=== PATIENT | female | born 2000 | race Caucasian/White ===

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

== ENCOUNTER 2020-07-01 15:34 | Inpatient (IN) | payer OTHER ==
[2020-07-01] MEDS ORDERED: XYLOCAINE 1% HCL 20 ML MDV IJ PRN (16:28)
[2020-07-01] MEDS ORDERED: Lactated Ringers 1,000 ML IV ONE (16:28)
[2020-07-01] MEDS ORDERED: Ephedrine Sulfate 50 MG/ML IV PRN (16:28)
[2020-07-01] MEDS ORDERED: OB EPIDURAL NAROPIN/SUFENTANIL IN NACL EPIDURAL PRN (16:28)
[2020-07-01] MEDS ORDERED: PITOCIN 30 UNITS/ LR 500 ML 30 UNITS/500 ML IV.SOLN. IV SCH (16:30)
[2020-07-01 16:39] LABS: Amphetamine,Urine NEGATIVE (NEGATIVE); Barbiturate,Urine NEGATIVE (NEGATIVE); Benzodiazepine,Urine NEGATIVE (NEGATIVE); Cocaine,Urine NEGATIVE (NEGATIVE); Methadone,Urine NEGATIVE (NEGATIVE); Opiate,Urine NEGATIVE (NEGATIVE); PCP,Urine NEGATIVE (NEGATIVE); THC,Urine POSITIVE (NEGATIVE)
[2020-07-01 17:42] LABS: BASOPHIL % 0.3 % (0.0-0.4); Basophil (Absolute #) 0.03 (0-0.4); Eosinophil % 0.3 % (0.00-5.0); Eosinophil (Absolute #) 0.03 (0-0.5); Hematocrit 32.7 % (35-47); Lymphocyte (Absolute #) 1.88 (1.0-4.6); Lymphocytes % 16.8 % (24.0-44.0); Mean Cell Volume 91.1 fl (78-100); Mean Corpuscular Hemoglobin 30.6 pg (26-32); Mean Corpuscular Hgb Concent. 33.6 g/dl (32-36); Monocyte (Absolute #) 0.83 (0.0-1.3); Monocytes % 7.4 % (0.0-12.0); Neutrophil % 75.2 % (36.0-66.0); Platelet Count 273 K/mm3 (150-450); Red Blood Count 3.59 M/mm3 (4.1-5.4); Red Cell Distribution Width 12.6 % (11.5-14.0); White Blood Count 11.2 K/mm3 (4.0-10.5)
[2020-07-01] MEDS ORDERED: Zofran 4 MG/2 ML VIAL IV PRN (22:14)
[2020-07-02] MEDS ORDERED: STADOL 2 MG IV PRN (03:38)
[2020-07-02] MEDS: Lactated Ringers 1,000 ML IV SCH ×2 (04:25→08:46)
[2020-07-02] MEDS ORDERED: SOD CITRATE-CITRIC ACID SOLN PO ONE (08:25)
[2020-07-02] MEDS ORDERED: Xylocaine-Mpf 2% 5 Ml Vial ONE (08:26)
[2020-07-02] MEDS ORDERED: Pitocin 10 UNITS/ML ONE ×2 (08:28→10:11)
[2020-07-02] MEDS ORDERED: Pepcid 20 MG VIAL IV SCH (08:30)
[2020-07-02] MEDS ORDERED: Reglan 10 MG/2 ML IV SCH (08:30)
[2020-07-02] MEDS ORDERED: CLINDAMYCIN-D5W 900 MG/50 ML*** 900 MG/50 ML BAG IV SCH (08:30)
[2020-07-02 08:59] LABS: INR 1.09 (0.8-3.0); PROTIME 12.3 SECONDS (9.95-12.35)
[2020-07-02 09:02] LABS: PTT 26.6 SECONDS (25.3-37.0)
[2020-07-02] MEDS ORDERED: Astramorph-Pf 5 MG/10 ML ONE (09:09)
[2020-07-02] MEDS ORDERED: MARCAINE 0.5%-EPI 1:200,000 VL IJ ONE (09:24)
[2020-07-02] MEDS ORDERED: Marcaine 0.5%/Epinephrine 10 ML ONE (09:24)
[2020-07-02] MEDS ORDERED: PHENYLEPHRINE HCL ONE (09:28)
[2020-07-02] MEDS ORDERED: Lactated Ringers 1,000 ML IV ONE ×2 (10:01→10:27)
[2020-07-02] MEDS ORDERED: DEMEROL 50 MG ONE (10:15)
[2020-07-02 10:39] LABS: Appearance CLEAR (CLEAR); Bilirubin NEGATIVE (NEGATIVE); Blood MODERATE Ery/ul (0-5); Glucose NEGATIVE (NEGATIVE); Ketones MODERATE (NEGATIVE); Leukocyte Esterase NEGATIVE (NEGATIVE); Mucus SLIGHT /HPF (NEGATIVE); Nitrite NEGATIVE (NEGATIVE); Protein,Urine Dip 30 (Negative); Specific Gravity 1.016 (1.005-1.025); Urobilinogen 2 mg/dL (0-1)
[2020-07-02 11:47] LABS: Absolute Neutrophil Ct (ANC) 18.63 (1.4-6.9); BASOPHIL % 0.1 % (0.0-0.4); Basophil (Absolute #) 0.02 (0-0.4); Eosinophil (Absolute #) 0.01 (0-0.5); Hematocrit 28.2 % (35-47); Hemoglobin 9.3 gm/dl (12.0-16.0); Lymphocytes % 4.8 % (24.0-44.0); Mean Cell Volume 91.3 fl (78-100); Mean Corpuscular Hemoglobin 30.1 pg (26-32); Mean Platelet Volume 9.9 fl (7.5-11.0); Monocyte (Absolute #) 1.38 (0.0-1.3); Monocytes % 6.6 % (0.0-12.0); Neutrophil % 88.5 % (36.0-66.0); Platelet Count 254 K/mm3 (150-450); Red Blood Count 3.09 M/mm3 (4.1-5.4); Red Cell Distribution Width 12.4 % (11.5-14.0)
[2020-07-02] MEDS ORDERED: NORCO 5/325 MG PO PRN (12:03)
[2020-07-02] MEDS ORDERED: LANSINOH 40 GM TOP PRN (12:03)
[2020-07-02] MEDS ORDERED: DEMEROL 50 MG IV PRN (12:03)
[2020-07-02] MEDS ORDERED: CLARITIN 10 MG PO PRN (12:03)
[2020-07-02] MEDS ORDERED: Mylicon 80MG PO PRN (12:03)
[2020-07-02] MEDS ORDERED: Phenergan 25 MG INJ IM PRN (12:03)
[2020-07-02] MEDS ORDERED: PERCOCET TABLET 5/325MG PO PRN (12:03)
--- NOTE | 2020-07-02 13:33 | OP ---
SURGERY DATE: 07/02/2020 SURGERY TIME: 900 PREOPERATIVE DIAGNOSES: 1. BREECH PRESENTATION. 2. TERM INTRAUTERINE IN ACTIVE LABOR. POSTOPERATIVE DIAGNOSES: 1. BREECH PRESENTATION. 2. TERM INTRAUTERINE IN ACTIVE LABOR. 3. HEMORRHAGE. PROCEDURE: 1. Primary low transverse section. SURGEON: Yovany Yanez M.D. ANESTHESIA: Epidural by Suresh Spence CRNA. ESTIMATED BLOOD LOSS: 1000 ml. URINE: 200 ml of clear, straw-colored urine. SPECIMEN: None. DESCRIPTION OF PROCEDURE: The patient had arrived with spontaneous rupture of membranes and in active labor and then found to have breech presentation after laboring. Therefore was sent for emergency . Risks and benefits were discussed including any potential complications including blood loss, infection, and damage to surrounding tissues. After informed written consent was signed, her previously placed laboring epidural was dosed for surgery and then she was taken to the OR and prepped and draped in the usual sterile fashion. After adequate level of anesthesia was assessed, low transverse skin incision was made by knife and carried down through the subcutaneous fat to the level of the fascia. Several bleeders were cauterized with electrocautery upon entry. The superior free edge of the fascia was then grasped with Jessica clamps after the fascia was nicked in the midline and extended horizontal on both sides. The same was repeated inferiorly with grasping the fascia with the Jessica clamps and underlying rectus muscles were dissected free. The peritoneal cavity was then opened in a horizontal and blunt fashion and extended. Bladder flap was created and reflected over the lower uterine segment. A horizontal uterine incision was made by knife and carried down to the level of the amniotic membranes which were carefully artificially ruptured. There was a mild amount of clear fluid encountered. A female was delivered from the breech presentation with strong cry immediately upon delivery. The oropharynx and nares were bulb suctioned freed. The cord was clamped and cut and she was handed off to the awaiting nursery team. The placenta was then manually extracted and the uterus was exteriorized. The uterine incision was closed with #1 chromic in a running, locked fashion. There was extension of the uterine incision in the right lower uterine segment with significant blood loss. It was eventually controlled place of chromic suture with good closure and good hemostasis, but again more than expected blood loss was encountered. The posterior cul-de-sac was suctioned free of blood and clot and the uterus was returned to the peritoneal cavity. Again, the uterine incision was closely inspected and noted to be adequately closed. There was a small area of bleeding in the inferior mid segment of the uterus which 2-0 Vicryl was placed in a figure-of-8 suture and took care of that area of oozing. Lateral gutters were wiped free of blood and clot. Again, the uterine incision was inspected to ensure continued good hemostasis which was present. The peritoneal cavity appeared good and dry. Therefore, the fascia was then closed with 0 Vicryl in a running fashion. Good closure and good hemostasis were achieved. The subcutaneous fat was irrigated with warm, sterile saline and any areas of bleeding were cauterized with electrocautery. Finally, the skin layer was closed with 4-0, undyed Vicryl in running subcuticular fashion. Steri-Strips and an occlusive dressing were placed over the incision. Anesthesia had started a 2nd line. There was some mild tachycardia in the 120-130 range, but otherwise, the patient was hemodynamically stable throughout the entirety of the procedure. PLAN: Plan is to check a postoperative H/H and I did discuss with her the possibility of need for transfusion following her blood loss and she was in stable condition following the procedure.
[2020-07-02 14:43] LABS: Amphetamine,Urine NEGATIVE (NEGATIVE); Barbiturate,Urine NEGATIVE (NEGATIVE); Benzodiazepine,Urine NEGATIVE (NEGATIVE); Cocaine,Urine NEGATIVE (NEGATIVE); Methadone,Urine NEGATIVE (NEGATIVE); Opiate,Urine NEGATIVE (NEGATIVE); PCP,Urine NEGATIVE (NEGATIVE); THC,Urine POSITIVE (NEGATIVE)
[2020-07-02] MEDS: Dextrose 5%-Lr IV Solution 1000 ML 1,000 ML IV SCH ×2 (15:19→23:30)
[2020-07-02] MEDS: MOTRIN 400 MG PO PRN (20:13)
[2020-07-02] MEDS ORDERED: Nubain 10 MG/ML IV PRN (20:58)
[2020-07-02] MEDS ORDERED: BENADRYL 50 MG/ML IV PRN (21:02)
[2020-07-02] MEDS: Colace 100 MG PO SCH (22:07)
[2020-07-03 05:59] LABS: Absolute Neutrophil Ct (ANC) 7.75 (1.4-6.9); BASOPHIL % 0.2 % (0.0-0.4); Basophil (Absolute #) 0.02 (0-0.4); Eosinophil % 0.6 % (0.00-5.0); Eosinophil (Absolute #) 0.07 (0-0.5); Hematocrit 22.2 % (35-47); Hemoglobin 7.3 gm/dl (12.0-16.0); Lymphocyte (Absolute #) 2.26 (1.0-4.6); Lymphocytes % 19.6 % (24.0-44.0); Mean Cell Volume 92.5 fl (78-100); Mean Corpuscular Hemoglobin 30.4 pg (26-32); Mean Corpuscular Hgb Concent. 32.9 g/dl (32-36); Mean Platelet Volume 9.9 fl (7.5-11.0); Monocyte (Absolute #) 1.43 (0.0-1.3); Monocytes % 12.4 % (0.0-12.0); Neutrophil % 67.2 % (36.0-66.0); Platelet Count 211 K/mm3 (150-450); Red Cell Distribution Width 12.5 % (11.5-14.0); White Blood Count 11.5 K/mm3 (4.0-10.5)
--- NOTE | 2020-07-03 07:48 | PCM.NOTE ---
Date and Time: 07/03/20745 Subjective Assessment: pt feels good, alcides po intake ambulating without dizziness or lightheadedness Objective Exam General Appearance: no apparent distress, alert Respiratory Exam: normal breath sounds, lungs clear, No respiratory distress Cardiovascular Exam: regular rate/rhythm, normal heart sounds Gastrointestinal/Abdomen Exam: soft, other (incision c/d/i), No tenderness, No mass OBJECTIVE DATA Vital Signs: Vital Signs - 24 hr Temp Pulse Resp BP Pulse Ox 07/03/20 02:00 98.3 F 96 H 18 119/57 98 07/02/20 20:00 98.4 F 112 H 16 127/72 100 07/02/20 18:00 99 07/02/20 17:00 97 07/02/20 16:00 98 07/02/20 15:00 99 07/02/20 14:14 98.2 F 113 H 18 132/89 97 07/02/20 14:00 98 07/02/20 13:14 133 H 18 98 07/02/20 13:00 96 07/02/20 12:14 137 H 18 122/74 99 07/02/20 12:00 97 07/02/20 11:59 99.4 F 136 H 18 122/74 97 07/02/20 11:00 100 07/02/20 08:48 98.2 F 95 H 24 122/79 07/02/20 08:30 111 H 20 100 07/02/20 08:15 97.8 F 118 H 20 07/02/20 08:00 24 Pain Assessment - Last Documented Pain Intensity [Posterior] 3 Pain Intensity 2 Pain Scale Used 0-10 Pain Scale Intake and Output: Intake & Output 06/30/20 07/01/20 07/02/20 07/03/20 11:59 11:59 11:59 11:59 Intake Total 2258 2600 Output Total 600 2200 Balance 1658 400 Weight 84.822 kg Lab Results: Lab Results-Last 24 Hours 07/02/20 07/02/20 07/02/20 Range/Units 08:26 08:26 08:36 WBC (4.0-10.5) K/mm3 RBC (4.1-5.4) M/mm3 Hgb (12.0-16.0) gm/dl Hct (35-47) % MCV (78-100) fl MCH (26-32) pg MCHC (32-36) g/dl RDW (11.5-14.0) % Plt Count (150-450) K/mm3 MPV (7.5-11.0) fl Gran % (36.0-66.0) % Eos # (Auto) (0-0.5) Absolute Lymphs (auto) (1.0-4.6) Absolute Monos (auto) (0.0-1.3) Lymphocytes % (24.0-44.0) % Monocytes % (0.0-12.0) % Eosinophils % (0.00-5.0) % Basophils % (0.0-0.4) % Absolute Granulocytes (1.4-6.9) Basophils # (0-0.4) PT 12.3 (9.95-12.35) SECONDS INR 1.09 (0.8-3.0) APTT 26.6 (25.3-37.0) SECONDS Urine Color YELLOW (YELLOW) Urine Appearance CLEAR (CLEAR) Urine pH 7.0 (5-6) Ur Specific [place] 1.016 (1.005-1.025) Urine Protein 30 (Negative) Urine Ketones MODERATE (NEGATIVE) Urine Blood MODERATE (0-5) Justo/ul Urine Nitrite NEGATIVE (NEGATIVE) Urine Bilirubin NEGATIVE (NEGATIVE) Urine Urobilinogen 2 (0-1) mg/dL Ur Leukocyte Esterase NEGATIVE (NEGATIVE) Urine WBC (Auto) 3-5 (0-5) /HPF Urine RBC (Auto) 16-25 (0-2) /HPF U Epithel Cells (Auto) NONE (FEW) /HPF Urine Bacteria (Auto) NONE (NEGATIVE) /HPF Urine Mucus (Auto) SLIGHT (NEGATIVE) /HPF Urine Culture Reflexed NO (NO) Urine Glucose NEGATIVE (NEGATIVE) mg/dL Urine Opiates Level NEGATIVE (NEGATIVE) Ur Methadone NEGATIVE (NEGATIVE) Urine Barbiturates NEGATIVE (NEGATIVE) Ur Phencyclidine (PCP) NEGATIVE (NEGATIVE) Urine Amphetamine NEGATIVE (NEGATIVE) U Benzodiazepine Level NEGATIVE (NEGATIVE) Urine Cocaine NEGATIVE (NEGATIVE) Urine Marijuana (THC) POSITIVE (NEGATIVE) 07/02/20 07/03/20 Range/Units 11:45 05:15 WBC 21.0 H 11.5 H (4.0-10.5) K/mm3 RBC 3.09 L 2.40 L (4.1-5.4) M/mm3 Hgb 9.3 L 7.3 L D (12.0-16.0) gm/dl Hct 28.2 L 22.2 L (35-47) % MCV 91.3 92.5 (78-100) fl MCH 30.1 30.4 (26-32) pg MCHC 33.0 32.9 (32-36) g/dl RDW 12.4 12.5 (11.5-14.0) % Plt Count 254 211 (150-450) K/mm3 MPV 9.9 9.9 (7.5-11.0) fl Gran % 88.5 H 67.2 H (36.0-66.0) % Eos # (Auto) 0.01 0.07 (0-0.5) Absolute Lymphs (auto) 1.00 2.26 (1.0-4.6) Absolute Monos (auto) 1.38 H 1.43 H (0.0-1.3) Lymphocytes % 4.8 L 19.6 L (24.0-44.0) % Monocytes % 6.6 12.4 H (0.0-12.0) % Eosinophils % 0.0 0.6 (0.00-5.0) % Basophils % 0.1 0.2 (0.0-0.4) % Absolute Granulocytes 18.63 H 7.75 H (1.4-6.9) Basophils # 0.02 0.02 (0-0.4) PT (9.95-12.35) SECONDS INR (0.8-3.0) APTT (25.3-37.0) SECONDS Urine Color (YELLOW) Urine Appearance (CLEAR) Urine pH (5-6) Ur Specific [place] (1.005-1.025) Urine Protein (Negative) Urine Ketones (NEGATIVE) Urine Blood (0-5) Justo/ul Urine Nitrite (NEGATIVE) Urine Bilirubin (NEGATIVE) Urine Urobilinogen (0-1) mg/dL Ur Leukocyte Esterase (NEGATIVE) Urine WBC (Auto) (0-5) /HPF Urine RBC (Auto) (0-2) /HPF U Epithel Cells (Auto) (FEW) /HPF Urine Bacteria (Auto) (NEGATIVE) /HPF Urine Mucus (Auto) (NEGATIVE) /HPF Urine Culture Reflexed (NO) Urine Glucose (NEGATIVE) mg/dL Urine Opiates Level (NEGATIVE) Ur Methadone (NEGATIVE) Urine Barbiturates (NEGATIVE) Ur Phencyclidine (PCP) (NEGATIVE) Urine Amphetamine (NEGATIVE) U Benzodiazepine Level (NEGATIVE) Urine Cocaine (NEGATIVE) Urine Marijuana (THC) (NEGATIVE) Multi-Disciplinary Progress Notes: Multi-Disciplinary Progress Notes 07/02/20 09:46 Respiratory Note by Gretchen Alejo 0900 STANDBY FOR PER PROTOCOL SX X1 FOR SCANT AMT CLEAR NO COMPLICATIONS Initialized on 07/02/20 09:46 - END OF NOTE Assessment/Plan (1) delivery delivered Current Visit: Yes Status: Acute Assessment & Plan: routine care Code(s): O82 - ENCOUNTER FOR DELIVERY WITHOUT INDICATION (2) Anemia due to blood loss, acute Current Visit: Yes Status: Acute Assessment & Plan: po iron, repeat cbc tomorrow Code(s): D62 - ACUTE POSTHEMORRHAGIC ANEMIA
[2020-07-03] MEDS: FERREX 150 PO SCH (09:02)
[2020-07-03] MEDS: Colace 100 MG PO SCH ×2 (09:02→22:25)
[2020-07-03] MEDS: MOTRIN 400 MG PO PRN ×2 (13:30→20:21)
[2020-07-03] MEDS: TYLENOL EXTRA STRENGTH 500 MG PO PRN ×2 (17:57→22:24)
[2020-07-03 21:06] VITALS: O2SAT 100
[2020-07-04] MEDS: MOTRIN 400 MG PO PRN ×2 (01:59→10:20)
[2020-07-04 06:26] LABS: BASOPHIL % 0.3 % (0.0-0.4); Basophil (Absolute #) 0.03 (0-0.4); Eosinophil % 2.1 % (0.00-5.0); Eosinophil (Absolute #) 0.21 (0-0.5); Hematocrit 22.7 % (35-47); Hemoglobin 7.2 gm/dl (12.0-16.0); Lymphocyte (Absolute #) 2.54 (1.0-4.6); Lymphocytes % 25.6 % (24.0-44.0); Mean Cell Volume 93.4 fl (78-100); Mean Corpuscular Hemoglobin 29.6 pg (26-32); Mean Corpuscular Hgb Concent. 31.7 g/dl (32-36); Mean Platelet Volume 9.8 fl (7.5-11.0); Monocyte (Absolute #) 1.15 (0.0-1.3); Monocytes % 11.6 % (0.0-12.0); Neutrophil % 60.4 % (36.0-66.0); Platelet Count 241 K/mm3 (150-450); Red Blood Count 2.43 M/mm3 (4.1-5.4); Red Cell Distribution Width 12.6 % (11.5-14.0); White Blood Count 9.9 K/mm3 (4.0-10.5)
[2020-07-04 08:42] VITALS: BP 133/73; PULSE 88
--- NOTE | 2020-07-04 10:04 | PCM.DS ---
Discharge Summary Date of Admission: 07/01/20 15:34 Admitting Physician: NINI FISHER Consults: Consults on Case 07/02/20 12:00 Notify Anesthesia Provider PRN Primary Care Provider: NINI FISHER Allergies Allergies influenza virus vaccine, specific [influenza virus vacc,specific] Allergy (Severe, Verified 07/01/20 15:58) shaking, flu like symptoms medroxyprogesterone [From Depo-Provera] Allergy (Severe, Verified 07/01/20 15:58) severe back pain, shaking uncontrolled Penicillins Allergy (Unknown, Verified 07/01/20 15:58) strawberry Allergy (Unknown, Verified 07/01/20 15:58) Hospital Summary - Hospital Course Hospital Course: patient arrived in active labor and was found to be in breech presentation, taken for emergency . has done well postop, had significant hemorrhage initially but has been stable and no symptoms with postop hgb of 7.3, and well bonded with her female. - Vitals & Intake/Output Vital Signs: Vital Signs Temperature 98.0 F 07/04/20 08:00 Pulse Rate 88 07/04/20 08:00 Respiratory Rate 18 07/04/20 08:00 Blood Pressure 133/73 07/04/20 08:00 O2 Sat by Pulse Oximetry 100 07/03/20 20:00 Intake & Output: Intake & Output 07/01/20 07/02/20 07/03/20 07/04/20 11:59 11:59 11:59 11:59 Intake Total 2258 2800 350 Output Total 600 2200 Balance 1658 600 350 Weight 84.822 kg - Lab Result Diagrams: 07/04/20 05:30 Lab Results-Last 24 Hrs: Lab Results-Last 24 Hours 07/01/20 07/04/20 Range/Units 17:30 05:30 WBC 9.9 (4.0-10.5) K/mm3 RBC 2.43 L (4.1-5.4) M/mm3 Hgb 7.2 L (12.0-16.0) gm/dl Hct 22.7 L (35-47) % MCV 93.4 (78-100) fl MCH 29.6 (26-32) pg MCHC 31.7 L (32-36) g/dl RDW 12.6 (11.5-14.0) % Plt Count 241 (150-450) K/mm3 MPV 9.8 (7.5-11.0) fl Gran % 60.4 (36.0-66.0) % Eos # (Auto) 0.21 (0-0.5) Absolute Lymphs (auto) 2.54 (1.0-4.6) Absolute Monos (auto) 1.15 (0.0-1.3) Lymphocytes % 25.6 (24.0-44.0) % Monocytes % 11.6 (0.0-12.0) % Eosinophils % 2.1 (0.00-5.0) % Basophils % 0.3 (0.0-0.4) % Absolute Granulocytes 6.00 (1.4-6.9) Basophils # 0.03 (0-0.4) Hep Bs Antigen Non Reactive (Non Reactive) - Procedures and Test Procedures and Tests throughout Hospitalization: Therapy Orders & Screens 07/02/20 09:45 Standby ROUTINE Comment: Diagnosis: SROM Discharge Exam General Appearance: no apparent distress, alert Respiratory Exam: normal breath sounds, lungs clear, No respiratory distress Cardiovascular Exam: regular rate/rhythm, normal heart sounds Gastrointestinal/Abdomen Exam: soft, normal bowel sounds, other (incision c/d/i) Extremity Exam: normal inspection, normal range of motion Final Diagnosis/Problem List - Final Discharge Diagnosis/Problem (1) delivery delivered Current Visit: Yes Status: Acute Assessment & Plan: home on norco prn, discussed restrictions will f/u 1 week Code(s): O82 - ENCOUNTER FOR DELIVERY WITHOUT INDICATION (2) Anemia due to blood loss, acute Current Visit: Yes Status: Acute Assessment & Plan: home on ferrous sulfate and colace Code(s): D62 - ACUTE POSTHEMORRHAGIC ANEMIA (3) started Current Visit: Yes Status: Acute Code(s): [id number] - - Discharge Disposition: Home, Self-Care Condition: Stable Prescriptions: New Docusate Sodium 100 mg [Colace 100 MG] 100 mg PO BID capsule Iron Polysaccharides Complex [Ferrex 150] 150 mg PO DAILY #30 capsule Hydrocodone/APAP 5-325 Tab^^^ [[place] 5-325 Tablet^^^] 1 tab PO Q6HPRN PRN #28 tablet MDD 6 PRN Reason: Pain Continue Vits W-Ca,Fe,FA(<1Mg) [] 1 each PO DAILY Follow up with: NINI FISHER MD [Primary Care Provider] - 1 Week
[2020-07-04] MEDS: FERREX 150 PO SCH (10:20)
[2020-07-04] MEDS: Colace 100 MG PO SCH (10:20)
== END 2020-07-04 13:00 | disposition home or self-care (01) | DRG 787 ==
LOC: OBSVTOIN 15:34 → OB 15:34 → MED SURG 07-03 22:59
PROVIDERS: ADMIT Family Medicine; ATTEND Family Medicine
PROC: 10D00Z1 Extraction of Products of Conception, Low, Open Approach (ICD-10-PCS; principal; 2020-07-02)
DX: O32.1XX0 Maternal care for breech presentation, not applicable or unspecified (principal); D62 Acute posthemorrhagic anemia; Z3A.39 39 weeks gestation of pregnancy; Z37.0 Single live birth
CPT/HCPCS: 36415; 62322; 64488; 76937; 76942; 80307; 81001; 84112; 85025; 85610; 85730; 87340; 94799; G0378; J0595; J2175; J2274; J2370; J2405; J2590; J2795; L0625; A9270-GY

== ENCOUNTER 2023-04-25 06:33 | Day surgery (SDC) | payer MEDICAID, OTHER ==
[2023-04-25 07:05] LABS: HCG URINE TEST NEGATIVE (NEGATIVE)
[2023-04-25] MEDS ORDERED: Versed 2 MG/2 ML Injection ONE (08:01)
[2023-04-25] MEDS ORDERED: DIPRIVAN 200 MG/20 ML IV ONE ×4 (08:01→08:49)
[2023-04-25] MEDS ORDERED: Xylocaine-Mpf 2% 5 Ml Vial ONE (08:01)
[2023-04-25] MEDS ORDERED: SUBLIMAZE 100 MCG/2 ML ONE (08:15)
[2023-04-25] MEDS ORDERED: Lactated Ringers 1,000 ML IV ONE (08:43)
[2023-04-25 09:29] VITALS: O2SAT 95
[2023-04-25 10:00] VITALS: BP 130/82; PULSE 87
--- NOTE | 2023-04-25 10:42 | OP ---
SURGERY DATE/TIME: 04/25/2023 0808 PREOPERATIVE DIAGNOSIS: History of colon polyps. POSTOPERATIVE DIAGNOSIS: Normal colon. PROCEDURE: Diagnostic colonoscopy. SURGEON: Yovany Yanez M.D. ANESTHESIA: MAC by Mendoza Rubalcava CRNA. ESTIMATED BLOOD LOSS: None. SPECIMENS: None. DESCRIPTION OF PROCEDURE: After informed written consent was obtained, the patient was taken to the endoscopy suite. She was placed in left lateral decubitus position and anesthesia was titrated to desired level of consciousness. Digital rectal exam showed normal sphincter tone and no internal lesions. The scope was inserted into the rectum and sequentially the entire colonic mucosa was traversed. The patient had a long tortuous colon and took some extra time to get to the right side of the colon. The ileocecal valve is visually verified. Upon withdrawal careful mucosal inspection revealed no gross abnormalities. Prep was noted to be fair. There were no obvious polyps or other concerning lesions. Prior to withdrawal retroflexion showed no internal lesions. The scope was removed. The patient was transferred to the recovery room in good condition.
== END 2023-04-25 10:11 | disposition home or self-care (01) ==
LOC: SDC 06:33
PROVIDERS: ATTEND Family Medicine
DX: Z09 Encounter for follow-up examination after completed treatment for conditions other than malignant neoplasm (principal); Z86.010 Personal history of colon polyps
CPT/HCPCS: 81025; J2250; J2704; J3010

== ENCOUNTER 2025-06-29 17:37 | Emergency (ER) | payer OTHER ==
[2025-06-29 18:10] VITALS: TEMP 97.4
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
[2025-06-29 19:50] VITALS: RESP 18
[2025-06-29 19:53] LABS: BASOPHIL % 1.0 % (0.1-1.2); Basophil (Absolute #) 0.08 x10^3/uL (0.01-0.08); Eosinophil (Absolute #) 0.24 x10^3/uL (0.04-0.36); Hematocrit 41.5 % (34.1-44.9); Hemoglobin 13.8 g/dL (11.2-15.7); IMMATURE GRAN # 0.03 x10^3u/L (0.001-0.031); IMMATURE GRAN % 0.4 % (0.001-0.429); Lymphocyte (Absolute #) 2.44 x10^3/uL (1.18-3.74); Mean Corpuscular Hemoglobin 29.2 pg (25.6-32.2); Mean Corpuscular Hgb Concent. 33.3 g/dL (32.2-35.5); Monocyte (Absolute #) 0.66 x10^3/uL (0.24-0.86); NUCLEATED RBC # 0.00 x10^3u/L (0.00-0.012); NUCLEATED RBC % 0.0 % (0.00-0.2); Platelet Count 303 x10^3/uL (182-369); Red Blood Count 4.73 x10^6/uL (3.93-5.22); White Blood Count 7.7 x10^3/uL (3.98-10.04)
[2025-06-29 20:09] LABS: Calcium 8.7 mg/dL (8.4-10.2); Carbon Dioxide 26.0 mmol/L (22-30); Creatinine 1 0.63 mg/dL (0.52-1.04); EST GLOMERULAR FILTRATION RATE 126.2 ML/MIN; Glucose 101.0 mg/dL (74-106); Potassium 3.6 mmol/L (3.5-5.1); SGOT/AST 25.0 U/L (14-36); SGPT/ALT 18.0 U/L (0-35); Total Protein 7.1 g/dL (6.3-8.2)
[2025-06-29 20:15] LABS: Glucose, Urine Negative (Negative); Protein,Urine Dip 30 (Negative); RBC >100 /HPF (0-5); WBC 21-50 /HPF (0-5)
[2025-06-29 20:35] LABS: ABO TYPING O; RH TYPING POSITIVE
[2025-06-29 20:42] VITALS: O2SAT 98
[2025-06-29] MEDS: Macrobid 100MG Capsule PO ONE (21:07)
[2025-06-29] MEDS ORDERED: Macrobid 100MG Capsule ONE (21:07)
[2025-06-29 21:09] VITALS: BP 142/109; PULSE 95
--- NOTE | 2025-06-30 08:58 | XRAY ---
Indication: vaginal bleeding. Two-dimensional transvaginal early OB ultrasound performed. Comparison: None for this . Uterus anteverted measuring 9.5 x 4.2 x 4.5 cm. No intrauterine gestational sac, pole, or heart tones. Endometrial stripe measures 5 mm. Neither ovaries are visualized. No suspicious adnexal mass or free fluid. Impression: Nonvisualization both ovaries. Negative for intrauterine/ectopic . Comment: Preliminary report was given.
== END 2025-06-29 21:40 | disposition home or self-care (01) ==
LOC: ED 17:37
DX: N93.9 Abnormal uterine and vaginal bleeding, unspecified (principal); N39.0 Urinary tract infection, site not specified; Z79.899 Other long term (current) drug therapy; Z72.0 Tobacco use